=== PATIENT | female | born 1995 | race Caucasian/White ===

== ENCOUNTER 2020-10-11 11:10 | Observation (INO) | END 2020-10-11 14:20 | disposition short-term general hospital (02) | LOC: 1NENULAB | PROVIDERS: ADMIT Obstetrics & Gynecology; ATTEND Obstetrics & Gynecology ==

== ENCOUNTER 2020-11-06 17:24 | Observation (INO) | END 2020-11-06 20:54 | disposition home or self-care (01) | LOC: 1NENULAB | PROVIDERS: ADMIT Registered Nurse; ATTEND Registered Nurse ==

== ENCOUNTER 2020-11-20 22:29 | Inpatient (IN) ==
[2020-11-20] MEDS ORDERED: Naloxone 0.4 MG/ML INJ IVP PRN (22:32)
[2020-11-20] MEDS ORDERED: Metoclopramide 10 MG/2 ML VIAL IVP PRN (22:32)
[2020-11-20] MEDS ORDERED: Ondansetron 4 MG/2 ML VIAL IVP PRN (22:32)
[2020-11-20] MEDS ORDERED: Azithromycin 500 MG in 0.9 % Sodium Chloride 250 ML IVPB PRN (22:32)
[2020-11-20] MEDS ORDERED: Famotidine 20 MG/2 ML VIAL IVP PRN (22:32)
[2020-11-20] MEDS ORDERED: EPHEDrine 50 MG/ML VIAL IVP PRN (22:43)
[2020-11-20] MEDS ORDERED: Epidural Premix (fent/bupiv) 110 ML EP SCH (22:45)
[2020-11-20] MEDS ORDERED: Ringers Solution, Lactated 1,000 ML IVC SCH (22:45)
[2020-11-20 22:50] LABS: Basophils % 0.3 %; Eosinophils # 0.1 K/mcL (0.0-0.6); Hematocrit 40.2 % (35.3-44.9); Hemoglobin 13.2 g/dL (11.5-15.4); Immature Granulocytes % 0.4 % (0-4); Lymphocytes # 3.2 K/mcL (0.6-4.6); Lymphocytes % 23.1 %; Mean Corpuscular HGB Conc 32.8 g/dL (31.6-35.5); Mean Corpuscular Hemoglobin 26.9 pg (28.0-33.3); Mean Corpuscular Volume 81.9 fL (83.0-100.0); Mean Platelet Volume 11.1 fL (9.4-12.4); Monocytes # 0.9 K/mcL (0.0-1.3); Monocytes % 6.7 %; Neutrophils # 9.6 K/mcL (1.6-8.9); Platelet Count 327 K/mcL (140-400); Red Blood Count 4.91 M/mcL (3.82-4.97); Red Cell Distribution Width 15.8 % (11.5-14.5); Segmented Neutrophils % 68.5 %
[2020-11-20 23:03] LABS: Amphetamine Screen,Urine Negative ng/mL (Cutoff=1000); Barbiturate Screen,Urine Negative ng/mL (Cutoff=200); Benzodiazepines Screen,Urine Negative ng/mL (Cutoff=200); Cannabinoid Screen,Urine Negative ng/mL (Cutoff = 50); Cocaine Screen,Urine Negative ng/mL (Cutoff= 300); Opiate Screen,Urine Negative ng/mL (Cutoff=300); Phencyclidine Screen,Urine Negative ng/mL (Cutoff=25)
[2020-11-20 23:30] LABS: Influenza A PCR Negative (Negative); Influenza B PCR Negative (Negative); Resp. Syncytial Virus PCR Negative (Negative)
[2020-11-20 23:32] LABS: SARS-CoV-2 by PCR (In House) Negative (Negative)
[2020-11-21] MEDS: miSOPROStoL 25 MCG TABLET PO PRN ×2 (01:24→10:45)
[2020-11-21] MEDS: *HR* Nalbuphine 10 MG/ML AMPUL IV PRN ×2 (07:24→17:46)
[2020-11-21] MEDS ORDERED: Oxytocin 20 units/ LR 1000 mL 20 UNIT/1,000 ML BAG IVC ONE (15:18)
[2020-11-22] MEDS ORDERED: Ropivacaine/PF 0.2% 20 ML VIAL ONE (02:15)
[2020-11-22] MEDS ORDERED: *HR* Ropivacaine/PF 0.5% 20 ML VIAL ONE (02:15)
[2020-11-22] MEDS ORDERED: *HR* FentaNYL (PF) 100 MCG/2 ML VIAL ONE ×2 (03:47→05:23)
[2020-11-22] MEDS ORDERED: Lidocaine/EPI 1:200k 2% PF 20 ML VIAL ONE (03:47)
[2020-11-22] MEDS ORDERED: Sodium Bicarbonate 50 MEQ/50 ML VIAL ONE (03:47)
[2020-11-22] MEDS ORDERED: Ondansetron 4 MG/2 ML VIAL ONE (04:03)
[2020-11-22] MEDS ORDERED: *HR* Succinylcholine 200 MG/10 ML VIAL IVP ONE (04:11)
[2020-11-22] MEDS ORDERED: *HR* Midazolam HCl 2 MG/2 ML VIAL ONE (04:34)
[2020-11-22] MEDS ORDERED: *HR* Oxytocin 10 UNIT/ML VIAL IM ONE ×2 (04:45→05:03)
[2020-11-22] MEDS ORDERED: Acetaminophen IV 1,000 MG/100 ML BAG IVPB ONE (04:47)
[2020-11-22] MEDS ORDERED: Ketorolac 30 MG/ML VIAL ONE (05:00)
[2020-11-22] MEDS ORDERED: Ringers Solution, Lactated 1,000 ML ONE (05:04)
[2020-11-22] MEDS ORDERED: *HR* Morphine Sulfate/PF 10 MG/10 ML AMPUL ONE (05:06)
[2020-11-22] MEDS ORDERED: *HR* Phenylephrine 10 MG/ML VIAL ONE (06:07)
[2020-11-22] MEDS ORDERED: Promethazine 6.25 MG in Water for inj. (sterile) 20 ML IVPB PRN (07:59)
[2020-11-22] MEDS ORDERED: *HR* HYDROmorphone PF 0.5 MG/0.5 ML SYRINGE IVP PRN (07:59)
[2020-11-22] MEDS ORDERED: Ringers Solution, Lactated 1,000 ML IVC SCH (09:14)
[2020-11-22] MEDS ORDERED: Simethicone 80 MG TAB.CHEW PO PRN (09:14)
[2020-11-22] MEDS ORDERED: Ondansetron 4 MG/2 ML VIAL IVP PRN (09:14)
[2020-11-22] MEDS ORDERED: Rho Immune Globulin 1,500 UNIT SYRINGE IM ONE (09:14)
[2020-11-22] MEDS ORDERED: Metoclopramide 10 MG/2 ML VIAL IVP PRN (09:14)
[2020-11-22] MEDS ORDERED: *HR* OxyCODONE Immed Rel 5 MG TABLET PO PRN (09:14)
[2020-11-22] MEDS: Oxytocin 20 units/ LR 1000 mL 20 UNIT/1,000 ML BAG IVC SCH ×2 (09:31→16:58)
[2020-11-22] MEDS: Prenatal Vit/FA 1 EACH TABLET PO SCH (09:36)
[2020-11-22] MEDS: cephALEXin 500 MG CAPSULE PO SCH ×3 (09:36→20:50)
[2020-11-22] MEDS: metroNIDAZOLE 500 MG TABLET PO SCH ×3 (09:36→20:50)
[2020-11-22] MEDS: Ibuprofen 600 MG TABLET PO SCH (16:57)
[2020-11-23] MEDS: Ibuprofen 600 MG TABLET PO SCH ×4 (00:03→21:42)
[2020-11-23] MEDS: *HR* Enoxaparin 40 MG/0.4 ML SYRINGE SQ SCH (05:03)
[2020-11-23 06:40] LABS: Basophils % 0.3 %; Eosinophils # 0.1 K/mcL (0.0-0.6); Hematocrit 32.1 % (35.3-44.9); Immature Granulocytes % 0.4 % (0-4); Lymphocytes # 2.6 K/mcL (0.6-4.6); Lymphocytes % 20.9 %; Mean Corpuscular HGB Conc 31.2 g/dL (31.6-35.5); Mean Corpuscular Hemoglobin 26.7 pg (28.0-33.3); Mean Corpuscular Volume 85.8 fL (83.0-100.0); Mean Platelet Volume 10.6 fL (9.4-12.4); Monocytes # 0.9 K/mcL (0.0-1.3); Monocytes % 7.2 %; Neutrophils # 8.7 K/mcL (1.6-8.9); Platelet Count 202 K/mcL (140-400); Red Blood Count 3.74 M/mcL (3.82-4.97); Red Cell Distribution Width 16.4 % (11.5-14.5); Segmented Neutrophils % 70.2 %; White Blood Count 12.5 K/mcL (4.3-11.1)
[2020-11-23 08:27] VITALS: TEMP 98.1
[2020-11-23] MEDS: metroNIDAZOLE 500 MG TABLET PO SCH ×3 (09:30→21:43)
[2020-11-23] MEDS: Prenatal Vit/FA 1 EACH TABLET PO SCH (09:30)
[2020-11-23] MEDS: cephALEXin 500 MG CAPSULE PO SCH ×3 (09:30→21:43)
[2020-11-23 22:04] VITALS: BP 131/83; PULSE 102; O2SAT 100
[2020-11-24] MEDS ORDERED: Lanolin 7 G OINT...G. TP PRN (01:43)
[2020-11-24] MEDS ORDERED: Acetaminophen 325 MG TABLET PO PRN (02:26)
[2020-11-24] MEDS: Ibuprofen 600 MG TABLET PO SCH (03:03)
[2020-11-24 06:42] LABS: Basophils % 0.3 %; Eosinophils # 0.1 K/mcL (0.0-0.6); Eosinophils % 1.1 %; Hematocrit 32.8 % (35.3-44.9); Hemoglobin 10.2 g/dL (11.5-15.4); Immature Granulocytes % 0.6 % (0-4); Lymphocytes # 3.1 K/mcL (0.6-4.6); Lymphocytes % 25.6 %; Mean Corpuscular HGB Conc 31.1 g/dL (31.6-35.5); Mean Corpuscular Hemoglobin 26.6 pg (28.0-33.3); Mean Corpuscular Volume 85.4 fL (83.0-100.0); Mean Platelet Volume 10.5 fL (9.4-12.4); Monocytes # 0.8 K/mcL (0.0-1.3); Monocytes % 6.3 %; Platelet Count 235 K/mcL (140-400); Red Blood Count 3.84 M/mcL (3.82-4.97); Red Cell Distribution Width 16.6 % (11.5-14.5); Segmented Neutrophils % 66.1 %; White Blood Count 12.1 K/mcL (4.3-11.1)
[2020-11-24] MEDS: *HR* Enoxaparin 40 MG/0.4 ML SYRINGE SQ SCH (06:57)
== END 2020-11-24 10:36 | disposition home or self-care (01) | DRG 540 ==
LOC: 1NENULAB 22:29 → 1NENUOBS 11-22 08:52
PROVIDERS: ADMIT Student in an Organized Health Care Education/Training Program; ATTEND Student in an Organized Health Care Education/Training Program